=== PATIENT | male | born 1995 | race African-American/Black ===

== ENCOUNTER 2021-07-27 16:12 | Emergency (ER) | payer OTHER, SELFPAY ==
[2021-07-27 16:45] VITALS: BP 135/64; PULSE 71; RESP 14; TEMP 36.7; O2SAT 98
--- NOTE | 2021-07-27 17:58 | ED.EXTPRO ---
HPI - Extremity Problem General Chief complaint: Extremity Problem,Nontraumatic Stated complaint: numbness in rt hand Time Seen by Provider: 07/27/21 19:03 Source: patient Mode of arrival: Ambulatory Limitations: no limitations History of Present Illness HPI Narrative: Patient is a 25-year-old healthy active male who presents with 1 week of numbness in his right hand. He is right-hand dominant he is having difficult time holding a pen feels like it is in his thumb index and middle finger. He occasionally gets sharp shooting pain to his neck not typically. He previously had this once before and he had excruciating pain in his neck and went to physical therapy and resolved. He is active in [facility], but does not remember any specific injury. He was seen evaluated by his primary care doctor today who was concerned for the increasing weakness in sent here for further evaluation. Related Data Previous Rx's Medication Instructions Recorded prednisone 20 mg tablet 40 mg PO DAILY #10 tab 07/27/21 Allergies Allergy/AdvReac Type Severity Reaction Status Date / Time No Known Drug Allergies Allergy Verified 07/27/21 19:36 Review of Systems Review of Systems Narrative: GENERAL: Denies chills, fatigue, malaise, fever, sweats, travel HEENT: Denies sinus pain, ear pain, sore throat, difficulty swallowing, neck pain RESPIRATORY: Denies dyspnea, cough, wheezing, hemoptysis, sputum. CARDIOVASCULAR: Denies chest pain, palpitations, orthopnea, edema GASTROINTESTINAL: Denies nausea, vomiting, abdominal pain, diarrhea, constipation, melena. : Denies dysuria, frequency, incontinence, hematuria, urinary retention, flank pain. MUSCULOSKELETAL: Denies weakness, joint pain, or bony pain SKIN: No rash, no erythema, no pruritus NEUROLOGIC: Denies weakness, dizziness, headache, numbness, change in speech, confusion PSYCHIATRIC: No concerning psychosocial issues. 12 point review of systems is negative except for those stated above and HPI Patient History Social History Smoking Status: Never smoker Smoking Status: Never smoker Substance Use Type: does not use Exam Initial Vital Signs Initial Vital Signs: Vital Signs Temperature 98.0 F 07/27/21 16:45 Pulse Rate 71 07/27/21 16:45 Respiratory Rate 14 07/27/21 16:45 Blood Pressure 135/64 07/27/21 16:45 Pulse Oximetry 98 07/27/21 16:45 GENERAL: Well-appearing, well-nourished and in no acute distress. HEENT: Head atraumatic,EOMI, pupils reactive, face symmetric, moist mucous membranes NECK: Moving neck very easily,no vertebral tenderness CARDIOVASCULAR: Peripheral pulses intact RESPIRATORY: No respiratory distress EXTREMITIES: Normal range of motion, no clubbing or edema. 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 NEUROLOGICAL: Alert and oriented x4.Normal gait and speech. Cranial nerves II through XII grossly intact. SKIN: Warm, dry, no laceration, no petechiae, no rashes or lesions. Course Orders Ordered: ED Orders 07/27/21 19:19 CT cervical spine wo con Stat Discontinued Medications Ketorolac Tromethamine (Ketorolac 30 Mg/Ml Vial) 30 mg IM NOW ONE Stop: 07/27/21 19:20 Last Admin: 07/27/21 19:43 Dose: 30 mg Documented by: EMIR Vital Signs Vital signs: Vital Signs - 8 hr 07/27/21 19:49 Pulse Rate 71 Blood Pressure 131/78 Pulse Oximetry 97 MDM - Extremity (Nontraumatic) Imaging Data CT - cervical spine: Radiologist's Impression: PROCEDURE:? CT CERVICAL SPINE WO CON ? INDICATIONS:? right hand numbness ? TECHNIQUE:? Noncontrast 3 mm thick sections acquired from the skull base to the T4 level.? Sagittal and coronal reformats were then constructed.? For radiation dose reduction, the following was used:? automated exposure control, adjustment of mA and/or kV according to patient size.? ? COMPARISON:? None. ? FINDINGS:? Image quality:? Excellent.? ? Bones:? No fractures or dislocations.? Mild right uncovertebral arthrosis at C5-6.? Visualized superior ribs are intact.? ? Soft tissues:? Prevertebral soft tissues are normal in thickness.? No paravertebral hematomas.? ? No apical pneumothoraces.? ? ? IMPRESSION:? 1. No acute osseous abnormality. ? ? ? Dictated by: Maksim Ny M.D. on 07/27/2021 at 19:34 ? ? [facility] Narrative Medical decision making narrative: Patient does have some median nerve they have care med. Questionable as if it is coming from his neck or not. Certainly does not seem to be carpal tunnel related he has a negative Phalen's and Tinel sign. unable to get MR I at this time I do not think he has be transferred for emergent MRI this been ongoing for over the week. However I do recommend he have an outpatient MRI and this can be arranged by his primary care provider. If things are getting worse she certainly needs to return. He is right-hand dominant so this is a concern. He currently has good track laminating machine tender strength some fine motor is decreasing. No concern for stroke at this time, more nerve impingement Discharge Plan Departure Patient Disposition: Home Clinical Impression: Peripheral neuropathy Instructions: DI for Peripheral Neuropathy Activity Restrictions/Additional Instructions: *You have been diagnosed with peripheral neuropathy *What to do: At this time you need an outpatient MRI. Unfortunately we were not able to get that today the emergency department the. However your CT did not show any narrowing. Please call your primary soon as possible to help get this arranged *Continue to take medications as directed Prednisone 40 mg once daily start tomorrow take in morning for 5 days *Follow up with your primary care provider in 2-3 days *Return to ER if you should have increasing weakness in right hand and fingers, increasing pain or any new, worsening or concerning symptoms Prescriptions: New prednisone 20 mg tablet 40 mg PO DAILY Qty: 10 0RF Referrals: [facility] [Provider Group]
--- NOTE | 2021-07-27 19:19 | DI.CT.S_ITS ---
PROCEDURE: CT CERVICAL SPINE WO CON INDICATIONS: right hand numbness TECHNIQUE: Noncontrast 3 mm thick sections acquired from the skull base to the T4 level. Sagittal and coronal reformats were then constructed. For radiation dose reduction, the following was used: automated exposure control, adjustment of mA and/or kV according to patient size. COMPARISON: None. FINDINGS: Image quality: Excellent. Bones: No fractures or dislocations. Mild right uncovertebral arthrosis at C5-6. Visualized superior ribs are intact. Soft tissues: Prevertebral soft tissues are normal in thickness. No paravertebral hematomas. No apical pneumothoraces. IMPRESSION: 1. No acute osseous abnormality. Dictated by: Maksim Ny M.D. on 07/27/2021 at 19:34 Approved by: Maksim Ny M.D. on 07/27/2021 at 19:36
[2021-07-27] MEDS: KETOROLAC 30 MG/ML VIAL IM (19:43)
[2021-07-27 19:49] VITALS: BP 131/78; PULSE 71; O2SAT 97
== END 2021-07-27 20:08 | disposition home or self-care (01) ==
PROVIDERS: Emergency Provider Emergency Medicine
DX: G62.9 Polyneuropathy, unspecified (principal)
CPT/HCPCS: 72125; 96372; 99283; 99284; J1885

== ENCOUNTER → 2021-08-02 17:58 | Outpatient (CLI) | payer OTHER, SELFPAY ==
--- NOTE | 2021-08-02 | DI.MRI.S_ITS ---
PROCEDURE: MR CERVICAL SPINE WO CON INDICATIONS: NUMBNESS AND WEAKNESS IN RIGHT ARM TECHNIQUE: Noncontrast sagittal T1 spin echo and T2 fast spin echo, sagittal STIR, foraminal oblique sagittal T2 fast spin echo, and axial gradient echo or T2 fast spin echo through the cervical spine. COMPARISON: None. FINDINGS: Image quality: Excellent. Alignment and Curvature: There is mild reversal of cervical curvature with apex at C5-6. There is trace retrolisthesis of C5 on C6. Bone Marrow: Marrow demonstrates normal overall signal. Mild reactive endplate changes are present at C5-6. Spinal Cord: Visualized spinal cord has normal size and signal. No cerebellar tonsillar herniation. Paraspinous Soft Tissues: No paravertebral masses. Prevertebral soft tissues are normal in thickness. Discs: [id number] desiccation present C5-6. C2-C3: No disc bulge, spinal stenosis or foraminal narrowing. C3-C4: Minimal disc bulge with minimal effacement of thecal sac. Minimal bilateral foraminal narrowing. C4-C5: Minimal disc bulge with minimal effacement of the anterior thecal sac. Minimal to mild left foraminal narrowing. C5-C6: Mild disc bulge with superimposed posterior central protrusion. Moderate spinal stenosis with moderate bilateral foraminal narrowing, right greater than left. C6-C7: No disc bulge with minimal spinal stenosis [id number] left and minimal right foraminal narrowing. C7-T1: No disc bulge, spinal stenosis or foraminal narrowing. IMPRESSION: 1. Reversal of cervical curvature as above. 2. Focal disc bulge with protrusion at C5-6 causing spinal stenosis. 3. Multilevel effacement of the thecal sac/spinal stenosis as above. 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 Dictated by: Raquel Monte M.D. on 08/03/2021 at 15:01 Approved by: Raquel Monte M.D. on 08/03/2021 at 15:10
== END ==
PROVIDERS: Referring Provider Family Medicine; Visit Provider Family Medicine
DX: M50.222 Other cervical disc displacement at C5-C6 level (principal); R20.0 Anesthesia of skin; R29.898 Other symptoms and signs involving the musculoskeletal system
CPT/HCPCS: 72141

== ENCOUNTER → 2023-11-06 08:34 | Outpatient (CLI) | payer OTHER, SELFPAY ==
--- NOTE | 2023-11-06 08:40 | DI.RAD.S_ITS ---
PROCEDURE: [place] SHOULDER INJECTION MR/CT RT INDICATIONS: RIGHT SHOULDER PAIN COMPARISON: [facility], MR, MR SHOULDER RT W CON, 11/06/2023, 9:05. TECHNIQUE: The indications, alternatives, benefits, risks, and complications of the procedure were explained to the patient. Written informed consent was obtained and placed in the chart. The shoulder was examined fluoroscopically and a site for needle placement chosen for entry into the glenohumeral joint from an anterior approach. The skin was prepped and draped in a sterile fashion, and 1% lidocaine infiltrated from skin down to joint capsule. A spinal needle was inserted into the glenohumeral joint, and a small amount of iodinated contrast media injected to confirm intra-articular placement of the needle tip. This was followed by approximately 12 mL dilute solution of a gadolinium containing MR contrast agent. The needle was removed and a dressing was applied. The patient was given postprocedural instructions and sent to the MR suite for MR imaging. FINDINGS: A single fluoroscopic spot image demonstrates intra-articular location of injected iodinated contrast. IMPRESSION: Successful fluoroscopically guided administration of dilute Gadolinium solution into the shoulder joint for MR arthrogram. Dictated by: Radha Charles M.D. on 11/06/2023 at 11:14 Approved by: Radha Charles M.D. on 11/06/2023 at 11:14
--- NOTE | 2023-11-06 08:41 | DI.MRI.S_ITS ---
PROCEDURE: MR SHOULDER RT W CON INDICATIONS: RIGHT SHOULDER PAIN TECHNIQUE: After the administration of 12 mL of dilute intra-articular Gadolinium contrast, oblique coronal T1 and T2 spin echo with fat saturation, oblique sagittal T1 spin echo with and without fat saturation, oblique sagittal T2 fast spin echo with fat saturation, axial T1 spin echo with fat saturation through the shoulder. COMPARISON: [facility], , [place] SHOULDER INJECTION MR/CT RT, 11/06/2023, 8:57. FINDINGS: Image quality: Excellent. Rotator cuff: The supraspinatus, infraspinatus, and subscapularis tendons appear intact throughout. No rotator cuff muscle atrophy on sagittal images. Bones and bursae: There is a chronic nonedematous Hill-Sachs lesion at the posterior superior humeral head measuring approximately 21 x 3 x 17 mm. A chronic appearing minimally displaced fracture is seen at the anterior inferior glenoid. The osseous fragment measures approximately 28 x 6 x 8 mm. This results in approximately 13% loss of anterior glenoid bone stock, estimated using the best fit lac vieux technique. There is postsurgical widening of the acromioclavicular joint. Trace noncommunicating fluid is seen in the subacromial/subdeltoid bursa. No filling defect is seen in the glenohumeral joint space. Capsule and soft tissues: There is tearing at the anterior inferior labrum along with the osseous fracture. The tear nearly circumferentially involves the remainder of the labrum. Status post biceps long head tenodesis within intact surgical construct. Glenohumeral ligaments appear to be intact. IMPRESSION: 1. Findings compatible with prior anterior instability including a chronic Hill-Sachs lesion at the posterior superior humeral head measuring 21 x 3 x 17 mm. 2. Chronic minimally displaced fracture seen at the anterior inferior glenoid resulting in up to 13% loss of anterior glenoid bone stock is submitted using the best fit lac vieux technique 3. Nearly circumferential nondisplaced labral tearing. 4. Status post biceps long head tendon desats with an intact surgical construct. 5. No significant rotator cuff tendon tear is seen. 6. Postsurgical widening of the acromioclavicular joint. Approved by: Dav Roper M.D. on 11/06/2023 at 13:29
[2023-11-06] MEDS: LIDOCAINE 1% 20 ML INJ (09:39)
[2023-11-06] MEDS: SODIUM CHLORIDE 0.9 % 20 ML VIAL IV (09:40)
== END ==
PROVIDERS: Referring Provider Physician Assistant Surgical; Visit Provider Physician Assistant Surgical
DX: S42.294A Other nondisplaced fracture of upper end of right humerus, initial encounter for closed fracture; S43.491A Other sprain of right shoulder joint, initial encounter; M25.511 Pain in right shoulder; M25.311 Other instability, right shoulder
CPT/HCPCS: 23350; 73222; 77002; A9579